=== PATIENT | male | born 1995 | race Caucasian/White ===

== ENCOUNTER 2019-06-15 09:31 | Emergency (ER) | payer OTHER ==
[2019-06-15 09:46] VITALS: BP 175/84
[2019-06-15] MEDS ORDERED: AZITHROMYCIN 250 MG TABLET PO STA (11:24)
[2019-06-15] MEDS ORDERED: cefTRIAXone 250 MG VIAL IM STA (11:24)
[2019-06-15] MEDS ORDERED: LIDOCAINE 1% 2 ML VIAL MC ONE (11:24)
--- NOTE | 2019-06-15 11:27 | ED Physician Documentation ---
History of Present Illness - Stated complaint Stated Complaint: ABD PX - Chief complaint Chief Complaint: General - History obtained from History obtained from: Patient - Additonal information Additional information: Patient comes emergency department stating that his ex-girlfriend was diagnosed with chlamydia and he Would like treatment. He states his last sexual contact with her was approximately 1 month ago. He states that he has had a little bit of dysuria, but no penile discharge. No fevers or abdominal pain. No hematuria. No nausea or vomiting. Patient states that he has not had any sore throat. He is otherwise healthy. He has not had any sexual partners since the partner in question. Review of Systems Ten Systems: 10 systems reviewed and negative Constitutional: reports: Reviewed and negative Eyes: reports: Reviewed and negative Ears: reports: Reviewed and negative Nose: reports: Reviewed and negative Throat: reports: Reviewed and negative Cardiac: reports: Reviewed and negative Respiratory: reports: Reviewed and negative GI: reports: Reviewed and negative : reports: Dysuria Skin: reports: Reviewed and negative Musculoskeletal: reports: Reviewed and negative Neurologic: reports: Reviewed and negative Psychiatric: reports: Reviewed and negative Endocrine: reports: Reviewed and negative Immunocompromised: reports: Reviewed and negative PD PAST MEDICAL HISTORY - Past Medical History Past Medical History: No - Past Surgical History Past Surgical History: Yes Ortho: ACL reconstruction - Allergies Allergies/Adverse Reactions: Allergies Allergy/AdvReac Type Severity Reaction Status Date / Time Sulfa (Sulfonamide Allergy Unknown Unknown Verified 06/15/19 09:43 Antibiotics) - Social History Does the pt smoke?: No Smoking Status: Never smoker Does the pt drink ETOH?: Yes Does the pt have substance abuse?: No - Immunizations Immunizations are current?: Yes PD ED PE NORMAL - Vitals Vital signs reviewed: Yes - General General: Alert and oriented X 3, No acute distress - HEENT HEENT: PERRL - Neck Neck: Supple, no meningeal sign - Cardiac Cardiac: RRR, No murmur - Respiratory Respiratory: No respiratory distress, Clear bilaterally - Abdomen Abdomen: Soft, Non tender, Non distended - Derm Derm: Normal color, Warm and dry, No rash - Extremities Extremities: No deformity - Neuro Neuro: Alert and oriented X 3, 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 He has been advised that any other sexual partners since the one in question should be treated prior to any further sexual contact.Patient may follow-up with his primary care physician for further concerns. Departure - Departure Disposition: 01 Home, Self Care Clinical Impression: Urethritis due to Chlamydia trachomatis, STD (male) Condition: Good Instructions: ED STD Male Treated
== END 2019-06-15 11:45 | disposition home or self-care (01) ==
LOC: ED 09:31
DX: A56.01 Chlamydial cystitis and urethritis (principal)
CPT/HCPCS: 87491; 87591; 96372; 99283; A9270; 87661